=== PATIENT | female | born 1990 | race Caucasian/White ===

== ENCOUNTER → 2020-06-04 | Outpatient (CLI) | payer OTHER ==
[2020-06-05 00:54] LABS: Peanut IgE <0.10 kU/L; Soybean IgE <0.10 kU/L
[2020-06-05 00:55] LABS: Clam IgE <0.10 kU/L; Shrimp IgE <0.10 kU/L; Walnut IgE (Food) <0.10 kU/L
[2020-06-05 00:56] LABS: Egg White IgE <0.10 kU/L; Scallop IgE <0.10 kU/L
[2020-06-05 00:57] LABS: Codfish IgE <0.10 kU/L
[2020-06-05 00:58] LABS: Cat Epith & Dander IgE <0.10 kU/L; Dermato. farinae IgE <0.10 kU/L; Dog Dander IgE <0.10 kU/L
[2020-06-05 00:59] LABS: Alternaria alternata IgE <0.10 kU/L; Aspergillus fumagatus IgE <0.10 kU/L; Cladosporian herbarum IgE <0.10 kU/L; Cockroach IgE <0.10 kU/L
[2020-06-05 01:00] LABS: Birch IgE <0.10 kU/L; Maple (Box Elder) IgE <0.10 kU/L; Oak IgE <0.10 kU/L
[2020-06-05 01:01] LABS: Elm IgE <0.10 kU/L; Ragweed,Common IgE <0.10 kU/L
[2020-06-05 01:02] LABS: Red Top (Bentgrass) IgE <0.10 kU/L
[2020-06-05 01:20] LABS: Immunoglobulin E 1.88 IU/mL (0.00-114.00); Immunoglobulin E 1.97 IU/mL (0.00-114.00)
== END | disposition home or self-care (01) ==
LOC: LABWHC1 14:13
PROVIDERS: ATTEND Internal Medicine Critical Care Medicine
DX: J45.909 Unspecified asthma, uncomplicated (principal)
CPT/HCPCS: 36415; 82785; 85008; 86003